=== PATIENT | female | born 1985 | race Caucasian/White ===

== ENCOUNTER 2021-09-21 11:18 | Day surgery (SDC) | payer OTHER, SELFPAY ==
--- NOTE | 2021-09-21 11:00 | PM.IMHP ---
H&P: HPI History of Present Illness Date/Time: 28-year-old 1 para 0 in 1st trimester with an incomplete AB. Two weeks ago she had ultrasound showing a normal IUP she had some bleeding and today there was no growth in the bleeding continues. Risks and benefits suction D and C reviewed Chief Complaint: Incomplete AB Review of Systems Review of Systems: All systems reviewed & are unremarkable except as noted in HPI and below Meds Home Medications and Allergies Allergies Allergy/AdvReac Type Severity Reaction Status Date / Time No Known Allergies Allergy Unverified 09/01/16 01:57 Exam Const: General: no acute distress Eyes: General: appearance normal, both eyes and all related structures Neck: Neck: supple and no JVD Thyroid: thyroid normal Resp: Effort & Inspection: normal respiratory effort Auscultation: clear to auscultation bilaterally Cardio: Rate: regular rate Rhythm: regular rhythm GI: Inspection: non-distended GI Palp: Yes Soft to palpation, No Tenderness to palpation present (GI) and No Guarding due to palpation present (GI) Auscultation: normal bowel sounds : External Female Exam: normal external appearance Speculum Exam - Vagina: normal appearance of the vagina and vaginal bleeding Speculum Exam - Cervix: Cervical os closed Bimanual exam- vagina & uterus: enlarged Bimanual Exam- Adnexa, other: normal adnexae Skin: General skin exam: no rashes or lesions noted Extrem: General: normal to inspection and no edema Psych: Mental Status: mental status grossly normal Affect: normal affect Assessment and Plan Additional Plan Impression: 1st trimester incomplete AB Plan: Suction dilatation and curettage
--- NOTE | 2021-09-21 11:03 | WPDHPUPDATE1 ---
History and Physical Update Update Date/Time: 09/21/21 11:03 History and Physical has been reviewed, including an updated exam of the patient. There are NO changes in the patient's condition. Risks, benefits, and alternatives have been discussed and questions answered. Patient agrees to proceed with procedure.
--- NOTE | 2021-09-21 11:34 | WPDANESEPPF ---
Anes - Initial Pre Proc Eval Procedure: Operation Date: 09/21/21 13:00 Proposed Procedures p Suction Dilation and Curettage - Franky Harden MD Date/Time: 09/21/21 11:34 Surgeon: Franky Harden MD Pre Op Diagnosis: missed AB Patient Data Age: 36 Gender: F Height: Weight: Allergies Allergy/AdvReac Type Severity Reaction Status Date / Time No Known Allergies Allergy Unverified 09/01/16 01:57 Home Medications Medication Instructions Recorded Confirmed Type hydrocodone-acetaminophen 1 tablet PO Q4H PRN #20 tablet 09/21/21 Rx Patient hx anesthesia problems: none Family hx anesthesia problems: none Results Review: All pre-operative results and documents have been reviewed as part of the pre-operative evaluation. Anes - Eval Final PreProcedure Day of Procedure 09/21/21 11:34 Patient weight: normal Heart: regular rate and rhythm Lungs: clear to auscultation and normal air movement Airway: Mallampati scale class II Neurological: alert and oriented Last oral intake: >/= 8 hours ASA classification: II Emergent: no Anesthetic plan: proceed Anesthesia type and monitoring: general GIVS Results Review: All pre-operative results and documents have been reviewed as part of the pre-operative evaluation. Informed Consent: The patient's anesthetic plan and its attendant risks and benefits were discussed with the patient/family/POA. Questions were solicited and answers provided to the satisfaction of the patient/family/POA.
[2021-09-21 11:53] VITALS: BP 120/66; PULSE 93; RESP 16; TEMP 37.1; O2SAT 98
[2021-09-21 12:31] LABS: Hematocrit 35.3 % (37.0-47.0); Hemoglobin 12.5 g/dL (12.0-15.0)
[2021-09-21] MEDS: ACETAMINOPHEN 500 MG TABLET 1000 MG PO (12:34)
[2021-09-21] MEDS: LACTATED RINGERS 1,000 ML 30 ML IV CONT (12:36)
[2021-09-21 12:39] VITALS: BMI 45.2
--- NOTE | 2021-09-21 12:51 | SUR.PREOP ---
we care pamplet given to pt.
--- NOTE | 2021-09-21 13:15 | W.PM.PROC2 ---
Procedure Note - Detailed Date of Procedure 09/21/21 Pre-op Diagnosis missed AB Post-op Diagnosis same Procedure Performed Suction dilatation curettage Surgeon Franky Harden MD Anesthesia MAC and local Indications 1st trimester and incomplete AB Findings Products of conception Description of Procedure At a distance at all worried about money anymore and dysfunctions banded she needed computer she looked at it was like wet and she is like wall that once 15 under direct in this was 2000 like is 19 and again 1999 allergies Dockery 500 blocks patient was prepped draped in normal sterile fashion placed in dorsal lithotomy position. Under excellent IV sedation weighted speculum placed post fornix vagina. Anterior lip of the cervix grasped with single-tooth tenaculum. 2.5cc 1% xylocaine anesthesia placed at 2, 4, 8, 10:00 a.m. of the cervix. Uterus sounded to 10cm. Serial dilatation with fragmented dilators performed followed by passage of the 10. Suction curette. A good grating sound was heard after good amount of tissue was removed the instruments removed and all were accounted for. All sponge, needle, instrument counts were correct. There were no immediate complications Estimated Blood Loss 25 Drains No Packing No Pathology yes Complications No immediate complications Condition stable Disposition PACU
[2021-09-21 13:17] VITALS: BP 145/70; PULSE 92; RESP 20; O2SAT 99
[2021-09-21 13:45] VITALS: BP 123/67; PULSE 60; RESP 16
== END 2021-09-21 14:15 | disposition home or self-care (01) ==
PROVIDERS: PCP Family Medicine; Visit Provider Obstetrics & Gynecology
PROC: (CPT 59820; principal; 2021-09-21 13:00)
DX: O02.1 Missed abortion (principal); Z3A.00 Weeks of gestation of pregnancy not specified
CPT/HCPCS: 59820; 36415; 85014; 85018; 85461; 88305; A9270; J2250; J2405; J2704; J3010; J7120